=== PATIENT | male | born 1940 | race Caucasian/White ===

== ENCOUNTER 2019-10-23 04:07 | Observation (INO) | payer MEDICARE ==
[~2019-10-23] VITALS: Ht 152.4 cm; Wt 85.2 kg
--- NOTE | 2019-10-23 04:25 | PHYS DOC ---
Past History Past Medical History: Diabetes Past Surgical History: No Surgical History Alcohol Use: None Drug Use: None General Adult EDM: Chief Complaint: SHORTNESS OF BREATH HPI: HPI: 78-year-old male presents with shortness of breath. The patient woke up around 230 this morning with shortness of breath. He has had a mild cough for the last 1 day. Denies chest pain or diaphoresis. Patient has a history of "14 stents" and CHF. He denies having a fever at home. He does feel like his abdomen is more distended than usual. He tells me that with he is fluid overloaded it is mostly in his abdomen and lungs. He is on several medications including torsemide and Eliquis. The Eliquis is because of his stents. He has been taking all of his medications. He denies any recent changes. Review of Systems: Review of Systems: Constitutional: Denies fever or chills Eyes: Denies change in visual acuity HENT: Denies nasal congestion or sore throat Respiratory: Cough with shortness of breath Cardiovascular: Denies chest pain or edema GI: Denies abdominal pain, nausea, vomiting, bloody stools or diarrhea : Denies dysuria Musculoskeletal: Denies back pain or joint pain Integument: Denies rash Neurologic: Denies headache, focal weakness or sensory changes Endocrine: Denies polyuria or polydipsia Lymphatic: Denies swollen glands Psychiatric: Denies depression or anxiety Heart Score: Risk Factors: Risk Factors: DM, Current or recent (<one month) smoker, HTN, HLP, family history of CAD, obesity. Risk Scores: Score 0 - 3: 2.5% MACE over next 6 weeks - Discharge Home Score 4 - 6: 20.3% MACE over next 6 weeks - Admit for Clinical Observation Score 7 - 10: 72.7% MACE over next 6 weeks - Early Invasive Strategies Allergies: Allergies: Allergies Coded Allergies Type Severity Reaction Last Updated Verified Sulfa (Sulfonamide Antibiotics) Allergy Unknown 02/11/14 No Physical Exam: PE: Constitutional: Well developed, well nourished, obese, no acute distress, non- toxic appearance. [] HENT: Normocephalic, atraumatic, bilateral external ears normal, oropharynx moist, no oral exudates, nose normal. [] Eyes: PERRLA, EOMI, conjunctiva normal, no discharge. [] Neck: Normal range of motion, no tenderness, supple, no stridor. [] Cardiovascular: Heart rate paced, regular rhythm, no murmur [] Lungs & Thorax: Bilateral breath sounds expiratory crackles [] Abdomen: Bowel sounds normal, soft, no tenderness, no masses, no pulsatile masses. [] Skin: Warm, dry, no erythema, no rash. [] Back: No tenderness, no CVA tenderness. [] Extremities: No tenderness, no cyanosis, no clubbing, ROM intact, no edema. [] Neurologic: Alert and oriented X 3, normal motor function, normal sensory function, no focal deficits noted. [] Psychologic: Affect normal, judgement normal, mood normal. [] EKG: EKG: Paced rhythm, rate 71, right axis deviation, no ST elevations or depressions. [] Radiology/Procedures: Radiology/Procedures: [] Impressions: INDICATION: Reason: SOB / Spl. Instructions: / History: COMPARISON: December 2013 FINDINGS: Single view of chest obtained. Enlarged cardiomediastinal silhouette with AICD again seen. Interstitial and groundglass opacities are seen throughout the left greater than right lung. Calcified pulmonary nodules and calcified lymph node which could be sequela of old granulomatous disease. Sclerotic focus in the right proximal humerus again seen. IMPRESSION: * Interstitial and groundglass opacities throughout the left greater than right lung which can be seen with asymmetric pulmonary edema or infiltrate. Electronically signed by: Norma Edwards MD (10/23/2019 5:20 AM) [id number] DICTATED AND SIGNED BY: NORMA EDWARDS MD DATE: 10/23/19519 CC: MACARENA KHAN DO; TIFFANIE DE LEON MD ~ Course & Med Decision Making: Course & Med Decision Making Pertinent Labs and Imaging studies reviewed. (See chart for details) The patient's labs are significant for a very slightly elevated white count 11.1, BUN of 1.6, and elevated BNP of 576. The patient's chest x-ray suggests pulmonary edema but cannot exclude developing infiltrate especially on the left. See official read for more details. I will go ahead and treat the patient for possible pneumonia with Rocephin and azithromycin. We will give him 80 mg of Lasix IV for the CHF. Given the appearance of his x-ray the COVID swab is prudent and we will do that. I spoke with the hospitalist, Dr. Cleveland and he has accepted the patient for admission. The patient is in agreement with this plan. [] Dragon Disclaimer: Dragon Disclaimer: This electronic medical record was generated, in whole or in part, using a voice recognition dictation system. Departure Departure: Impression: Primary Impression: CHF (congestive heart failure) Additional Impression: Pneumonia Disposition: ADMITTED INPATIENT Admitting Physician: Augustine Cleveland Condition: STABLE Referrals: TIFFANIE DE LEON MD (PCP) Justification of Admission: Justification of Admission: Justification of Admission Dx: Yes Comments: CHF, pneumonia MACARENA KHAN DO Oct 23, 2019 04:25
--- NOTE | 2019-10-23 04:38 | EKG ---
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
[2019-10-23 05:03] LABS: BASO # 0.1 x10^3/uL (0.0-0.2); BASO % 1 % (0-3); CALCIUM 9.1 mg/dL (8.5-10.1); CREATININE 1.6 mg/dL (0.7-1.3); EOS # 0.5 x10^3/uL (0.0-0.7); EOS % 4 % (0-3); GFR 42.2; HEMATOCRIT 40.2 % (39.0-53.0); HEMOGLOBIN 13.4 g/dL (13.0-17.5); LYMPH # 2.2 x10^3/uL (1.0-4.8); LYMPH % 20 % (24-48); MEAN CORPUSCULAR HEMOGLOBIN 32 pg (25-35); MEAN CORPUSCULAR HGB CONC 33 g/dL (31-37); MEAN CORPUSCULAR VOLUME 95 fL (79-100); MONO # 1.4 x10^3/uL (0.0-1.1); MONO % 12 % (0-9); NEUT % 63 % (31-73); PLATELET COUNT 220 x10^3/uL (140-400); POTASSIUM 3.9 mmol/L (3.5-5.1); RED BLOOD COUNT 4.22 x10^6/uL (4.30-5.70); RED CELL DISTRIBUTION WIDTH 14.7 % (11.5-14.5); WHITE BLOOD COUNT 11.1 x10^3/uL (4.0-11.0)
[2019-10-23 05:15] LABS: ALBUMIN 3.8 g/dL (3.4-5.0); ALBUMIN/GLOBULIN RATIO 1.1 (1.0-1.7); TOTAL BILIRUBIN 0.5 mg/dL (0.2-1.0); TOTAL PROTEIN 7.3 g/dL (6.4-8.2)
--- NOTE | 2019-10-23 05:22 | RAD ---
INDICATION: Reason: SOB / Spl. Instructions: / History: COMPARISON: December 2013 FINDINGS: Single view of chest obtained. Enlarged cardiomediastinal silhouette with AICD again seen. Interstitial and groundglass opacities are seen throughout the left greater than right lung. Calcified pulmonary nodules and calcified lymph node which could be sequela of old granulomatous disease. Sclerotic focus in the right proximal humerus again seen. IMPRESSION: * Interstitial and groundglass opacities throughout the left greater than right lung which can be seen with asymmetric pulmonary edema or infiltrate. Electronically signed by: Eloy Suarez MD (10/23/2019 5:20 AM) [id number]
[2019-10-23] MEDS ORDERED: IV NORMAL SALINE 50ML 50 ML ONE (05:55)
[2019-10-23] MEDS ORDERED: cefTRIAXone SODIUM 1 GM VIAL ONE (05:55)
[2019-10-23] MEDS ORDERED: AZITHROMYCIN 500 MG VIAL. IV ONE (05:55)
[2019-10-23] MEDS ORDERED: IV NORMAL SALINE 250ML 250 ML ONE (05:55)
[2019-10-23] MEDS ORDERED: FUROSEMIDE 40 MG/4 ML VIAL IVP ONE (06:00)
[2019-10-23] MEDS ORDERED: ONDANSETRON PF 4 MG/2 ML VIAL. IVP PRN (06:00)
[2019-10-23] MEDS ORDERED: AZITHROMYCIN 500 MG in IV NORMAL SALINE 250ML 250 ML IV ONE (06:00)
[2019-10-23 07:12] LABS: BILIRUBIN,URINE NEG (NEG); CLARITY,URINE CLEAR; COLOR,URINE YELLOW; GLUCOSE,URINE NEG (NEG); NITRITE,URINE NEG (NEG); UROBILINOGEN,URINE 0.2 mg/dL (0.2 mg/dL)
[2019-10-23 07:13] LABS: BACTERIA,URINE 0 /HPF (0-FEW); SQUAMOUS EPITHELIAL CELL,UR FEW /LPF
[2019-10-23 07:30] VITALS: BP 154/69
--- NOTE | 2019-10-23 07:30 | NUR ---
PATIENT ARRIVED TO UNIT VIA EMS. PATIENTS VS OBTAINED AND ARE STABLE. PATIENT IS ORIENTED TO ROOM, BED RAIL POLICY, VISITING POLICY, MEAL SECHEDULE. PATIENT IS OFFERED FOOD AND DRINK AND ACCEPTS. MEAL TRAY ORDERED. PATIENT IS PLEASANT AND COOPERATIVE WITH ASSESSMENT. PATIENT IS RESTING IN BED AT THIS TIME. DR YOUNG NOTIFIED OF ADMISSION. WILL CONTINUE TO MONITOR.
[2019-10-23] MEDS ORDERED: LOSA100T14 PO (08:30)
[2019-10-23] MEDS ORDERED: METF10007 PO (08:30)
[2019-10-23] MEDS ORDERED: POTA20TA4 PO (08:30)
[2019-10-23] MEDS ORDERED: ATOR20TA58 PO (08:30)
[2019-10-23] MEDS ORDERED: SITA100T PO (08:30)
[2019-10-23] MEDS ORDERED: TORS20TA2 PO (08:30)
[2019-10-23] MEDS ORDERED: CARV25TA2 PO (08:30)
[2019-10-23] MEDS ORDERED: ESCI10TA2 PO (08:30)
[2019-10-23] MEDS ORDERED: APIX5TAB3 PO (08:30)
[2019-10-23] MEDS ORDERED: GABA-586 PO (08:30)
[2019-10-23] MEDS ORDERED: ASPI325T8 PO (08:32)
--- NOTE | 2019-10-23 10:55 | HP ---
ADMIT DATE: 10/23/2019 ATTENDING PHYSICIAN: Dr. Young. CHIEF COMPLAINT: Shortness of breath. HISTORY OF PRESENT ILLNESS: The patient is a 78-year-old gentleman with a 2-day history of increasing dyspnea, shortness of breath that woke him up at 2:30 this morning. He has had a mild nonproductive cough, no fevers or chills. No COVID exposures. He has a longstanding history of vascular disease with 14 stents in his heart, kidneys, and legs. He tells me that he is fluid overloaded. His urologist told him to drink plenty of fluids. He has been pushing liquids. This has resulted in vascular congestion. Chest x-ray demonstrated bilateral infiltrates consistent with congestive heart failure. He denied any chest pain. Cardiac enzymes were negative for coronary ischemia. He is on Eliquis and torsemide. He responded well to IV Lasix. He is admitted then for volume overload and exacerbation of congestive heart failure. He has seen a seed mill superintendent at [facility]. He has also seen urologist at [facility] as well as a primary care physician out in the [facility]. PAST MEDICAL HISTORY: Significant for multiple stents in his heart, legs and kidney. He has had sleep apnea. He is hard of hearing with bilateral hearing aids. He has had bladder cancer. ALLERGIES: He has allergies to SULFA. CURRENT MEDICATIONS: Include the following: He is on a daily dose of torsemide 20 mg daily, apixaban 5 mg daily, aspirin, Lipitor, Coreg, Lexapro, Neurontin, losartan, metformin, potassium and Januvia. He has also had type 2 diabetes mellitus. FAMILY HISTORY: Mom at age 92 of old age. Father of heart attack at age 62. He is , retired from [employer]. SOCIAL HISTORY: He used to smoke. He quit 6 years ago. He does not drink any alcohol. REVIEW OF SYSTEMS: Significant for the dyspnea. He has no orthopnea. He has no chest pain, palpitations, bleeding, nausea, vomiting. All other systems reviewed and determined to be negative. PHYSICAL EXAMINATION: GENERAL: When I saw him, this is a pleasant gentleman who was actually improved by the time I saw him. VITAL SIGNS: Showed a blood pressure of 175/76, pulse of 73 and regular, temperature 97.8 degrees Fahrenheit, oxygen saturation 96% on 2 liters of nasal cannula. HEENT: Head is without trauma. Pupils are reactive. Sclerae nonicteric. Oropharynx clear. NECK: Supple, no bruits. Venous pressure is not distended. LUNGS: Bibasilar crackles. CARDIOVASCULAR: Showed distant heart tones. Hyperdynamic precordium. No gallops. Peripheral pulses are palpable and full. ABDOMEN: Obese, protuberant. No organomegaly. Bowel sounds were hypoactive. EXTREMITIES: Showed trace edema. NEUROLOGIC: Focally intact. Combat Systems Officer intact. Speech is fluent. SKIN: Warm and dry. PERTINENT LABORATORY STUDIES: Chest x-ray demonstrated vascular congestion and cardiomegaly consistent with congestive heart failure. Hemoglobin is 13.4 g/dL with white cell count 11,000. Creatinine is 1.6 mg percent; I am not aware of his baseline. Cardiac enzymes have been negative for coronary ischemia. BNP 586, potassium is 3.9 mEq. ASSESSMENT: 1. A 78-year-old gentleman with acute congestive heart failure due to volume overload. 2. Known coronary artery disease with multiple stents. 3. Peripheral vascular disease with also stents. 4. History of prostate cancer. 5. Type 2 diabetes. 6. Generalized debilitation. 7. Essential hypertension. PLAN: 1. Admit inpatient unit with telemetry monitoring. 2. Serial cardiac enzymes. 3. Intravenous Lasix in lieu of Demadex. 4. Serial chemistry. 5. Potassium replacement. 6. Fluid restriction with daily weights. 7. We shall ask our seed mill superintendent to see him while he is here. CAROLYN YOUNG MD DR: BINA/jasson JOB#: [id number] / [id number]
[2019-10-23 11:30] VITALS: BP 136/69
[2019-10-23] MEDS: ASPIRIN 325 MG TABLET PO SCH (11:38)
[2019-10-23] MEDS: GABAPENTIN 300 MG CAPSULE. PO SCH ×2 (11:38→21:10)
[2019-10-23] MEDS: LOSARTAN 50 MG TABLET. PO SCH (11:39)
[2019-10-23] MEDS: CITALOPRAM 20 MG TABLET. PO SCH (11:40)
[2019-10-23] MEDS: POTASSIUM CHLORIDE 20 MEQ TABLET.ER. PO SCH (11:40)
[2019-10-23] MEDS: ATORVASTATIN CALCIUM 20 MG TABLET PO SCH (11:40)
[2019-10-23] MEDS: LINAGLIPTIN 5 MG TABLET PO SCH (11:40)
[2019-10-23] MEDS: APIXABAN 5 MG TABLET. PO SCH (11:40)
[2019-10-23 15:53] VITALS: BP 155/64
[2019-10-23] MEDS: FUROSEMIDE 80 MG TABLET PO SCH (16:20)
[2019-10-23] MEDS: metFORMIN 500 MG TABLET PO SCH (16:21)
[2019-10-23] MEDS: CARVEDILOL 12.5 MG TABLET PO SCH (16:21)
[2019-10-23 21:00] VITALS: BP 117/65
[2019-10-24 05:22] VITALS: BP 155/77
[2019-10-24 07:08] LABS: ALBUMIN 3.7 g/dL (3.4-5.0); ALBUMIN/GLOBULIN RATIO 1.1 (1.0-1.7); CREATININE 1.5 mg/dL (0.7-1.3); GFR 45.5; POTASSIUM 3.6 mmol/L (3.5-5.1); TOTAL BILIRUBIN 0.6 mg/dL (0.2-1.0); TOTAL PROTEIN 7.2 g/dL (6.4-8.2)
[2019-10-24] MEDS: ASPIRIN 325 MG TABLET PO SCH (07:41)
[2019-10-24] MEDS: metFORMIN 500 MG TABLET PO SCH (07:42)
[2019-10-24] MEDS: CARVEDILOL 12.5 MG TABLET PO SCH (07:42)
[2019-10-24] MEDS: GABAPENTIN 300 MG CAPSULE. PO SCH (08:30)
[2019-10-24 08:31] VITALS: BP 155/77
[2019-10-24] MEDS: LOSARTAN 50 MG TABLET. PO SCH (08:31)
[2019-10-24] MEDS: CITALOPRAM 20 MG TABLET. PO SCH (08:31)
[2019-10-24] MEDS: LINAGLIPTIN 5 MG TABLET PO SCH (08:31)
[2019-10-24] MEDS: POTASSIUM CHLORIDE 20 MEQ TABLET.ER. PO SCH (08:31)
[2019-10-24] MEDS: ATORVASTATIN CALCIUM 20 MG TABLET PO SCH (08:31)
[2019-10-24] MEDS: APIXABAN 5 MG TABLET. PO SCH (08:31)
[2019-10-24] MEDS: FUROSEMIDE 80 MG TABLET PO SCH (08:32)
[2019-10-24] MEDS ORDERED: POTASSIUM CHLORIDE 20 MEQ TABLET.ER. PO SCH (09:00)
--- NOTE | 2019-10-24 09:48 | RAD ---
AP chest x-ray HISTORY: Shortness of breath. Follow-up. COMPARISON: Chest x-ray October 23, 2019 and priors FINDINGS: 3-lead cardiac pacemaker/defibrillator again noted. Cardiomegaly stable. Diffuse calcified granulomas throughout the mediastinum and lungs again demonstrated. Heart size stable. No pneumothorax, pulmonary opacities or pleural effusions. The pulmonary opacities on the prior exam have since resolved. IMPRESSION: No acute process. Sequela of an old granulomatous infection again demonstrated. See above. Electronically signed by: Dakota Liz MD (10/24/2019 9:45 AM) [id number]
--- NOTE | 2019-10-24 10:37 | NUR ---
Reviewed discharge instructions with patient including follow up appts, medications, importance of diet/salt intake, daily weights. PIV removed, pressure bandage applied, pt tolerated well. Pt had all belongings at discharge including 3 gold rings, cell phone, clothing, mask, shoes. Pt left unit ambulatory to personal vehicle at 1037 with spouse.
--- NOTE | 2019-10-24 11:08 | DS ---
DATE OF DISCHARGE: 10/24/2019 ATTENDING PHYSICIAN: Dr. Young. FINAL DISCHARGE DIAGNOSES: 1. Acute congestive heart failure due to volume overload. 2. Known coronary artery disease with multiple stents. 3. Type 2 diabetes mellitus. 4. Peripheral vascular disease with stents. 5. History of prostate cancer. 6. Essential hypertension. 7. Generalized debilitation. HISTORY AND PHYSICAL: This is a 78-year-old gentleman with multiple medical issues. He has had a 2-day history of increasing dyspnea, shortness of breath and he had evidence of vascular congestion and congestive heart failure. He is followed by senior software tester at [facility]. He also sees a urologist for his urologic malignancy. He has had multiple stents in his heart, legs and kidney. He also has sleep apnea. PHYSICAL EXAMINATION: Please see the dictated note. PERTINENT LABORATORY AND X-RAY STUDIES: On this admission, cardiac enzymes were negative for coronary ischemia. There was no evidence of myocardial infarct. Creatinine on admission was 1.6 mg/dL; with diuresis, it is actually improved the next day to 1.5 mg/dL. Potassium is maintained at 3.6 mEq per liter, sodium 141 mEq, hemoglobin 13.4 g/dL with a white count of 11,100. Chest x-ray demonstrated cardiomegaly, vascular congestion. AICD is present. Followup x-ray the next day showed improvement or lessening of vascular congestion. COURSE IN THE HOSPITAL: The patient was admitted to the medical floor. He was placed on telemetry. He responded well to intravenous diuresis with Lasix. Followup chemistries the next day showed an improvement in serum creatinine. Electrolytes were stable. He had no chest pain and he felt better. Supplemental oxygen was removed. At this time, I offered a Cardiology consultation while at [facility]. He elected to see his regular senior software tester at [facility]. By the second hospital day, the patient was much improved. Lungs were clear. He felt better. He had adequate oxygen saturation on room air. The patient was afebrile, heart rate was normal. Swelling had improved. He had normal oxygen saturations on room air, blood pressure was 155/77 mmHg. Therefore, he is discharged home with no changes on his medication. I would recommend that he continue his daily morning dose of Demadex 20 mg p.o. daily. He should continue his Eliquis 5 mg daily, Lipitor, Coreg 12.5 mg b.i.d., losartan, aspirin, Neurontin, Lexapro, potassium supplementation, Demadex, metformin and Januvia dose is unchanged. He will follow up with his regular senior software tester and primary care physician. The patient was then discharged from our hospital in stable condition with explicit instructions and followup care. TOTAL DISCHARGE TIME SPENT: 39 minutes. CAROLYN YOUNG MD DR: BNIA/nts JOB#: [id number] / [id number]
--- NOTE | 2019-10-27 11:40 | NUR ---
IP: patient notified of COVID test result
== END 2019-10-24 10:37 | disposition home or self-care (01) ==
LOC: ER 04:07 → 1 SOUTH 05:00 → INTOOBSV 05:00
PROVIDERS: ADMIT Hospitalist; ATTEND Hospitalist
DX: I11.0 Hypertensive heart disease with heart failure (principal); Z20.828 Contact with and (suspected) exposure to other viral communicable diseases; I50.9 Heart failure, unspecified; H91.90 Unspecified hearing loss, unspecified ear; G47.30 Sleep apnea, unspecified; I25.10 Atherosclerotic heart disease of native coronary artery without angina pectoris; E11.51 Type 2 diabetes mellitus with diabetic peripheral angiopathy without gangrene; Z95.820 Peripheral vascular angioplasty status with implants and grafts; Z79.01 Long term (current) use of anticoagulants; Z79.899 Other long term (current) drug therapy; Z87.891 Personal history of nicotine dependence; Z85.51 Personal history of malignant neoplasm of bladder; Z95.5 Presence of coronary angioplasty implant and graft; Z85.46 Personal history of malignant neoplasm of prostate; Z97.4 Presence of external hearing-aid
CPT/HCPCS: 36415; 71045; 80053; 81001; 83880; 84484; 85025; 87086; 93005; 96366; 96368; 96375; 99285; G0378; J0456; J0696; J1940; J7050; U0003; 96365; G0379

== ENCOUNTER → 2020-08-10 | Outpatient (CLI) | payer MEDICARE ==
[~2020-08-10] MED LIST: APIX5TAB3 PO; ASPI325T8 PO; ATOR20TA58 PO; CARV25TA2 PO; ESCI10TA90 PO; GABA-586 PO; LOSA100T14 PO; METF10007 PO; POTA20TA4 PO; SITA100T PO; TORS20TA2 PO
[2020-08-10 10:50] LABS: CALCIUM 10.1 mg/dL (8.5-10.1); CREATININE 2.7 mg/dL (0.7-1.3); POTASSIUM 3.6 mmol/L (3.5-5.1)
== END ==
LOC: LAB 09:56
PROVIDERS: ATTEND Internal Medicine Interventional Cardiology
DX: I10 Essential (primary) hypertension (principal); Z95.810 Presence of automatic (implantable) cardiac defibrillator
CPT/HCPCS: 36415; 80048; 83735

== ENCOUNTER → 2020-09-29 | Outpatient (CLI) | payer MEDICARE ==
--- NOTE | 2020-09-29 10:28 | RAD ---
EXAM: CHEST 2 VIEWS. HISTORY: Acute renal failure. COMPARISON: 10/24/2019. FINDINGS: Frontal and lateral views of the chest are obtained. A left-sided pacemaker/defibrillator h as its leads in the right atrium, right ventricle and a left cardiac vein. There are no confluent infiltrates. There is no pneumothorax or pleural effusion. The heart is mildly enlarged. There are atherosclerotic calcifications of the aorta. Calcified lymph nodes likely reflec t old granulomatous disease. There are scattered calcified granulomas bilaterally. Changes of right r otator cuff repair are suspected. IMPRESSION: 1. Mild cardiomegaly. Electronically signed by: Nelly Guajardo MD (09/29/2020 10:26 AM) [id number]
== END ==
LOC: RAD 09:39
PROVIDERS: ATTEND Internal Medicine Nephrology
DX: I51.7 Cardiomegaly (principal); N17.9 Acute kidney failure, unspecified; I70.0 Atherosclerosis of aorta
CPT/HCPCS: 71046

== ENCOUNTER 2020-12-30 05:03 | Inpatient (IN) | payer MEDICARE ==
[~2020-12-30] VITALS: Ht 172.7 cm; Wt 74.5 kg
[~2020-12-30 05:03] MED LIST changes: +POTA-121 PO; -POTA20TA4 PO
--- NOTE | 2020-12-30 05:35 | PHYS DOC ---
Past History Past Medical History: Cancer, CHF, Depression, Diabetes, High Cholesterol, Hypertension, LA, Other Additional Past Medical Histor: BLADDER CANCER (CADEN NOEL MD) Past Surgical History: Pacemaker Additional Past Surgical Histo: 14 CARDIAC STENTS, CANCER SX (CADEN NOEL MD) Alcohol Use: None Drug Use: None (CADEN NOEL MD) Adult General Chief Complaint Chief Complaint: MECHANICAL FALL HPI HPI Patient is a 80-year-old male with a past medical history significant for stroke, LA, on Xarelto with a defibrillator in place as well as insulin- dependent diabetes, hypertension and hyperlipidemia who presents to the emerg ency department with a chief complaint of fall. States that about 3 to 4 hours ago he went to get out of bed to go to the restroom and was too weak to stand and fell to the floor. Denies hitting his head, or loss of consciousness. Denies headache, changes in vision, chest pain, shortness of breath, abdominal pain, nausea, vomiting, dysuria, hematuria, blood in the stool or diarrhea. Denies any Covid/flu/cold symptoms. Denies any numbness/tingling. Does endorse generalized weakness worse in his legs and difficulty walking due to the weakness of his legs. States he had not had that happen before. (CADEN NOEL MD) Review of Systems Review of Systems Review of systems otherwise unremarkable except noted in HPI (CADEN NOEL MD) Allergies Allergies Allergies Coded Allergies Type Severity Reaction Last Updated Verified Sulfa (Sulfonamide Antibiotics) Allergy Unknown 02/11/14 No (CADEN NOEL MD) Physical Exam Physical Exam Constitutional: Well developed, well nourished, no acute distress, non-toxic appearance. [] HENT: Normocephalic, atraumatic, bilateral external ears normal, oropharynx moist, no oral exudates, nose normal. [] Eyes: PERRLA, EOMI, conjunctiva normal, no discharge. [] Neck: Normal range of motion, no tenderness, supple, no stridor. [] Cardiovascular:Heart rate regular rhythm, no murmur [] Lungs & Thorax: Bilateral breath sounds clear to auscultation [] Abdomen: soft, no tenderness, no masses, no pulsatile masses. [] Skin: Warm, dry, no erythema, no rash. [] Back: Lower lumbar midline tenderness with no obvious step-offs, no CVA tenderness. [] Extremities: No tenderness, no cyanosis, no clubbing, ROM intact, no edema. [] Neurologic: Alert and oriented X 3, motor function in lower extremities 4 out of 5 strength with upper extremities 5 out of 5, normal sensory function, no focal deficits noted, cranial nerves intact, able to sit and stand but has difficulty walking without assistance which is new for him. NIH of zero. [] Psychologic: Affect normal, judgement normal, mood normal. [] (CADEN NOEL MD) Current Patient Data Vital Signs Vital Signs Date Time Temp Pulse Resp B/P (MAP) Pulse Ox O2 Delivery O2 Flow Rate FiO2 12/30/20 05:06 99.0 81 23 136/60 (85) 97 (CADEN NOEL MD) Vital Signs Vital Signs Date Time Temp Pulse Resp B/P (MAP) Pulse Ox O2 Delivery O2 Flow Rate FiO2 12/30/20 05:06 99.0 81 23 136/60 (85) 97 12/30/20 06:04 Room Air Vital Signs Date Time Temp Pulse Resp B/P (MAP) Pulse Ox O2 Delivery O2 Flow Rate FiO2 12/30/20 06:04 86 17 136/80 (98) 95 Room Air 12/30/20 05:06 99.0 Lab Results Laboratory Tests Test 12/30/20 05:15 12/30/20 05:29 White Blood Count 3.9 x10^3/uL Red Blood Count 3.42 x10^6/uL Hemoglobin 9.4 g/dL Hematocrit 29.5 % Mean Corpuscular Volume 86 fL Mean Corpuscular Hemoglobin 28 pg Mean Corpuscular Hemoglobin Concent 32 g/dL Red Cell Distribution Width 16.4 % Platelet Count 132 x10^3/uL Neutrophils (%) (Auto) 63 % Lymphocytes (%) (Auto) 22 % Monocytes (%) (Auto) 14 % Eosinophils (%) (Auto) 0 % Basophils (%) (Auto) 1 % Neutrophils # (Auto) 2.5 x10^3uL Lymphocytes # (Auto) 0.9 x10^3/uL Monocytes # (Auto) 0.5 x10^3/uL Eosinophils # (Auto) 0.0 x10^3/uL Basophils # (Auto) 0.0 x10^3/uL Prothrombin Time 12.2 SEC Prothromb Time International Ratio 1.2 Activated Partial Thromboplast Time 27 SEC Sodium Level 135 mmol/L Potassium Level 3.0 mmol/L Chloride Level 99 mmol/L Carbon Dioxide Level 24 mmol/L Anion Gap 12 Blood Urea Nitrogen 65 mg/dL Creatinine 3.1 mg/dL Estimated GFR (Cockcroft-Gault) 19.6 BUN/Creatinine Ratio 21 Glucose Level 190 mg/dL Calcium Level 11.1 mg/dL Magnesium Level 2.3 mg/dL Total Bilirubin 0.4 mg/dL Aspartate Amino Transf (AST/SGOT) 22 U/L Alanine Aminotransferase (ALT/SGPT) 39 U/L Alkaline Phosphatase 383 U/L Troponin I High Sensitivity 124 ng/L Total Protein 5.3 g/dL Albumin 2.4 g/dL Albumin/Globulin Ratio 0.8 Urine Collection Type Unknown Urine Color Yellow Urine Clarity Clear Urine pH 5.0 Urine Specific [place] 1.010 Urine Protein 100 mg/dl Urine Glucose (UA) 100 mg/dL Urine Ketones (Stick) Neg mg/dL Urine Blood Neg Urine Nitrite Neg Urine Bilirubin Neg Urine Urobilinogen Dipstick 0.2 mg/dL Urine Leukocyte Esterase Neg Urine RBC 0 /HPF Urine WBC Occ /HPF Urine Squamous Epithelial Cells Occ /LPF Urine Bacteria 0 /HPF Current Medications Medications (Trade) Dose Ordered Sig/Darby Route PRN Reason Start Time Stop Time Status Last Admin Dose Admin Acetaminophen (Tylenol) 1,000 mg 1X ONCE PO 12/30/20 05:45 12/30/20 05:46 DC 12/30/20 05:43 Fentanyl Citrate (Fentanyl 2ml Vial) 25 mcg 1X ONCE IVP 12/30/20 05:45 12/30/20 05:46 DC 12/30/20 05:44 Iohexol (Omnipaque 350 Mg/ml) 100 ml 1X ONCE IV 12/30/20 06:00 12/30/20 06:01 DC Info (Do NOT chart on this entry -- for MONITORING) 1 each PRN DAILY PRN MC SEE COMMENTS 12/30/20 06:00 01/01/21 05:59 Potassium Chloride/Sodium Chloride 1,000 ml @ 100 mls/hr 1X ONCE IV 12/30/20 07:00 12/30/20 16:59 Potassium Chloride (Klor-Con) 40 meq 1X ONCE PO 12/30/20 07:00 12/30/20 07:01 DC (VIETKATE ) EKG EKG [] (CADEN NOEL MD) Radiology/Procedures Radiology/Procedures [] (CADEN NOEL MD) Radiology/Procedures CT HEAD WITHOUT CONTRAST History: Reason: fall on blood thinner / Spl. Instructions: / History: Comparison: None. Technique: Axial images are obtained of the head from the skull base through the vertex without IV contrast. Findings: No mass-effect, midline shift, extra-axial fluid collection, hemorrhage, or obvious acute infarction is identified. Basilar cisterns are patent. The ventricles and sulci are prominent, consistent with age-related cerebral atrophy. There is periventricular white matter hypoattenuation. This is a nonspecific finding but is commonly due to chronic small vessel ischemic disease. There is small old left ashby radiata lacunar infarct. Heterogeneous calvarium may be due to diffuse demineralization. No acute fracture is identified. The visualized paranasal sinuses are clear. Mastoid air cells are well aerated. IMPRESSION: 1. No acute intracranial abnormality. 2. Generalized cerebral atrophy. 3. Old left ashby radiata lacunar infarct. Electronically signed by: Job Marshall MD (12/30/2020 7:05 AM) [facility] /////////////////////////////////////// EXAMINATION: CTA HEAD AND NECK W/WO CONTRAST CLINICAL HISTORY: Fall, on blood thinners TECHNIQUE: Spiral high resolution axial images were obtained through the head, neck and superior mediastinum following bolus administration of intravenous contrast for CT angiography. 3D maximum intensity projection images also performed. CT Dose Reduction Employed: One or more of the following individualized dose reduction techniques were utilized for this examination: 1. Automated exposure control 2. Adjustment of the mA and/or kV according to patient size 3. Use of iterative reconstruction technique. COMPARISON: None FINDINGS: BRAIN: No evidence of acute ischemic stroke or intracranial hemorrhage. NECK: Soft Tissues: No evidence of acute abnormality. Partially visualized left-sided cardiac pacemaker. Spine: Multilevel degenerative changes. Lung Apices: No acute abnormality. No dependent subsegmental atelectasis. Calcified superior mediastinal lymph nodes, compatible with old granulomatous disease. CT ARTERIOGRAM: Extracranial Circulation: Aortic Arch: Normal branching pattern from the aortic arch. Moderate mixed atherosclerotic plaque in the aortic arch and arch vessels without evidence of hemodynamically significant stenosis. Carotid Stenosis: Right Common: Moderate mixed atherosclerotic plaque greatest at the bifurcation without evidence of hemodynamically significant stenosis. Right Internal Carotid Plaque: Mild to moderate calcified plaque in the proximal internal carotid artery. Right Internal Carotid Stenosis (% by NASCET Criteria): < 50% Left Common: Mild mixed atherosclerotic plaque without evidence of hemodynamically significant stenosis. Left Internal Carotid Plaque: Mild to moderate calcified plaque in the carotid bulb and proximal internal carotid artery. Left Internal Carotid Stenosis (% by NASCET Criteria): < 50% Cervical Vertebral Arteries: Patency: Patent bilaterally with mild calcified plaque. Dominance: Left Intracranial Circulation: Anterior Circulation: No evidence of large vessel occlusion. Mild calcified plaque in the intracranial portion of the bilateral internal carotid arteries. 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 Vertebrobasilar Circulation: No evidence of large vessel occlusion. Normal variant anatomy with the right vertebral artery terminating in the PICA and origin of the right posterior cerebral artery. IMPRESSION: No evidence of large vessel occlusion or significant carotid arterial stenosis. Multiple nonacute findings as described. Electronically signed by: Teodoro Lantigua DO (12/30/2020 7:20 AM) [id number] ///////////////////////////// EXAMINATION: CT CHEST_ABDOMEN_ AND PELVIS WITHOUT CONTRAST (CT CHEST WITHOUT IV CONTRAST and CT ABDOMEN AND PELVIS WITHOUT IV CONTRAST) CLINICAL HISTORY: Fall, on blood thinner. Lumbar pain, chest wall pain TECHNIQUE: CT of the chest performed without IV contrast, scanning from the thoracic inlet to the upper abdomen. CT of the abdomen and pelvis performed without IV contrast, scanning from just above the dome of the diaphragm to the symphysis pubis. CT Dose Reduction Employed: One or more of the following individualized dose reduction techniques were utilized for this examination: 1. Automated exposure control 2. Adjustment of the mA and/or kV according to patient size 3. Use of iterative reconstruction technique. COMPARISON: None FINDINGS: CHEST: Lines, Tubes, and Devices: Left-sided dual-chamber biventricular cardiac pacemaker/ICD. Lung Parenchyma and Pleura: Mild dependent subsegmental atelectasis bilaterally. Motion degraded images of the lung bases suggests more prominent patchy opacities in the left lung base, possibly related to increased atelectasis but superimposed infection is not excluded. Upper lobe predominant centrilobular emphysematous changes. Multiple bilateral small old calcified granulomas. No pleural effusion. Central airways are patent. Lower Neck, Mediastinum, and Heart: Tiny hypodense nodule in the posterior right thyroid gland. Multiple calcified mediastinal and hilar lymph nodes, compatible with old granulomatous disease. Main pulmonary artery normal in caliber. Moderate aortic atherosclerotic calcification without aneurysm. Extensive coronary atherosclerotic calcification. Normal heart size. Bones/Soft Tissues: Mild compression deformity in the T7 superior endplate, possibly a compression fracture of unclear chronicity versus a more prominent Schmorl's node superimposed on endplate degenerative change. 1.4 cm heterogeneous lesion in the T6 vertebral body, nonspecific but may be related to a hemangioma with superimposed sclerosis. Subcentimeter sclerotic foci in the T6 and T9 vertebral bodies, nonspecific but could represent bone islands. Multilevel thoracic degenerative changes. No evidence of acute fracture. ABDOMEN/PELVIS: Liver: Small old calcified granulomas. Biliary: Gallbladder unremarkable. Spleen: Small old calcified granulomas. Pancreas: Unremarkable. Adrenals: Unremarkable. Kidneys: No calculus, hydronephrosis or finding to suggest a cyst or mass in the unenhanced kidneys. Vascular calcifications. GI Tract: No dilated bowel. Appendix not definitively visualized. Lymph Nodes: No lymphadenopathy. Mesentery/peritoneum: No ascites. Vasculature: Extensive arterial atherosclerotic calcification without aneurysm. Bilateral common iliac endovascular stents. Surgical clips along the course of the left iliac vessels. Pelvis: Mildly filled urinary bladder. Coarse prostatic calcifications. Bones/Soft Tissues: Subcentimeter sclerotic focus in the L4 vertebral body, nonspecific but could represent a bone island. Multilevel lumbar degenerative changes. No evidence of acute fracture. IMPRESSION: Patchy airspace disease suspected in the left lung base as described, suboptimally evaluated due to motion degradation. There is otherwise no evidence of acute cardiopulmonary abnormality. No evidence of acute abdominopelvic abnormality. Possible T7 compression fracture as described. This is of unclear chronicity without old studies for comparison, but more remote process is favored. Nonspecific heterogeneous lesion in the T6 vertebral body and small sclerotic foci in the T6, T9, and L4 vertebral bodies as described. Multiple additional nonacute findings as described. Electronically signed by: Teodoro Lantigua DO (12/30/2020 7:41 AM) [id number] (KATE LLANOS DO) Heart Score C/O Chest Pain: No Risk Factors: Risk Factors: DM, Current or recent (<one month) smoker, HTN, HLP, family history of CAD, obesity. Risk Scores: Risk Factors: DM, Current or recent (<one month) smoker, HTN, HLP, family history of CAD, obesity. (CADEN NOEL MD) Course & Med Decision Making Course & Med Decision Making Patient is a 80-year-old male who presents with a chief complaint of fall, leg weakness and low back pain Vital signs not concerning. Physical exam noted above. Patient placed on the monitor with IV access established. Patient's care handed off to day team pending results of labs and imaging. (CADEN NOEL MD) Course & Med Decision Making I assumed care of patient after comprehensive signout from off going physician I repeated certain aspects of history and physical exam and reviewed and disclosed entirety of ER findings I discussed and recommended hospitalization given patient's multiple issues. Electrolyte imbalance corrected with IV fluids and supplemental potassium. Elevated troponin and high risk individual. Weakness with fall, no emergent indication for surgical intervention. I contacted hospitalist and reviewed entirety of patient presentation and need for admission, patient admission accepted under the care of Dr. Cleveland for continued inpatient medical management I have updated patient and at bedside on conversation with hospitalist and need for admission, they were amenable. All questions and concerns addressed. confirms patient is full CODE STATUS at time of admission (KATE LLANOS DO) Dragon Disclaimer Dragon Disclaimer This electronic medical record was generated, in whole or in part, using a voice recognition dictation system. (CADEN NOEL MD) Departure Departure: Impression: Primary Impression: Fall Additional Impressions: Elevated troponin Electrolyte imbalance CKD (chronic kidney disease) Disposition: ADMITTED INPATIENT Admitting Physician: Augustine Cleveland (KATE LLANOS DO) Condition: STABLE Referrals: TIFFANIE DE LEON MD (PCP) Problem Qualifiers CADEN NOEL MD Dec 30, 2020 05:35 KATE LLANOS DO Dec 30, 2020 07:19
[2020-12-30 05:39] LABS: BASO % 1 % (0-3); EOS % 0 % (0-3); HEMATOCRIT 29.5 % (39.0-53.0); HEMOGLOBIN 9.4 g/dL (13.0-17.5); LYMPH # 0.9 x10^3/uL (1.0-4.8); LYMPH % 22 % (24-48); MEAN CORPUSCULAR HEMOGLOBIN 28 pg (25-35); MEAN CORPUSCULAR HGB CONC 32 g/dL (31-37); MEAN CORPUSCULAR VOLUME 86 fL (79-100); MONO # 0.5 x10^3/uL (0.0-1.1); MONO % 14 % (0-9); NEUT # 2.5 x10^3uL (1.8-7.7); NEUT % 63 % (31-73); PLATELET COUNT 132 x10^3/uL (140-400); RED BLOOD COUNT 3.42 x10^6/uL (4.30-5.70); RED CELL DISTRIBUTION WIDTH 16.4 % (11.5-14.5); WHITE BLOOD COUNT 3.9 x10^3/uL (4.0-11.0)
[2020-12-30] MEDS ORDERED: ACETAMINOPHEN 500 MG TABLET PO ONE (05:45)
--- NOTE | 2020-12-30 05:50 | EKG ---
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
[2020-12-30 05:52] LABS: BACTERIA,URINE 0 /HPF (0-FEW); BILIRUBIN,URINE NEG (NEG); CLARITY,URINE CLEAR; COLOR,URINE YELLOW; GLUCOSE,URINE 100 mg/dL (NEG); NITRITE,URINE NEG (NEG); RBC,URINE 0 /HPF (0-2); SQUAMOUS EPITHELIAL CELL,UR OCC /LPF; UROBILINOGEN,URINE 0.2 mg/dL (0.2 mg/dL); WBC,URINE OCC /HPF (0-4)
[2020-12-30 05:54] LABS: ALBUMIN 2.4 g/dL (3.4-5.0); ALBUMIN/GLOBULIN RATIO 0.8 (1.0-1.7); CALCIUM 11.1 mg/dL (8.5-10.1); CREATININE 3.1 mg/dL (0.7-1.3); GFR 19.6; TOTAL BILIRUBIN 0.4 mg/dL (0.2-1.0); TOTAL PROTEIN 5.3 g/dL (6.4-8.2)
[2020-12-30] MEDS ORDERED: IOHEXOL 350 MG/ML 100 ML VIAL. IV ONE (06:00)
[2020-12-30] MEDS ORDERED: CONTRAST GIVEN. MC PRN (06:00)
[2020-12-30] MEDS ORDERED: POTASSIUM CHLORIDE 20 MEQ TABLET.ER. PO ONE (07:00)
[2020-12-30] MEDS ORDERED: POTASSIUM CL 40MEQ IN 0.9%NACL 1,000 ML IV ONE (07:00)
--- NOTE | 2020-12-30 07:08 | RAD ---
PQRS Compliance Statement: One or more of the following individualized dose reduction techniques were utilized for this examinat ion: 1. Automated exposure control 2. Adjustment of the mA and/or kV according to patient size 3. Use of iterative reconstruction technique CT HEAD WITHOUT CONTRAST History: Reason: fall on blood thinner / Spl. Instructions: / History: Comparison: None. Technique: Axial images are obtained of the head from the skull base through the vertex without IV co ntrast. Findings: No mass-effect, midline shift, extra-axial fluid collection, hemorrhage, or obvious acute infarction is identified. Basilar cisterns are patent. The ventricles and sulci are prominent, consistent with age-related cerebral atrophy. There is perive ntricular white matter hypoattenuation. This is a nonspecific finding but is commonly due to chronic small vessel ischemic disease. There is small old left ashby radiata lacunar infarct. Heterogeneous calvarium may be due to diffuse demineralization. No acute fracture is identified. The visualized paranasal sinuses are clear. Mastoid air cells are well aerated. IMPRESSION: 1. No acute intracranial abnormality. 2. Generalized cerebral atrophy. 3. Old left ashby radiata lacunar infarct. Electronically signed by: Job Marshall MD (12/30/2020 7:05 AM) [facility]
--- NOTE | 2020-12-30 07:23 | RAD ---
EXAMINATION: CTA HEAD AND NECK W/WO CONTRAST CLINICAL HISTORY: Fall, on blood thinners TECHNIQUE: Spiral high resolution axial images were obtained through the head, neck and superior medi astinum following bolus administration of intravenous contrast for CT angiography. 3D maximum intensi ty projection images also performed. CT Dose Reduction Employed: One or more of the following individualized dose reduction techniques wer e utilized for this examination: 1. Automated exposure control 2. Adjustment of the mA and/or kV ac cording to patient size 3. Use of iterative reconstruction technique. COMPARISON: None FINDINGS: BRAIN: No evidence of acute ischemic stroke or intracranial hemorrhage. NECK: Soft Tissues: No evidence of acute abnormality. Partially visualized left-sided cardiac pacemaker. Spine: Multilevel degenerative changes. Lung Apices: No acute abnormality. No dependent subsegmental atelectasis. Calcified superior mediasti nal lymph nodes, compatible with old granulomatous disease. CT ARTERIOGRAM: Extracranial Circulation: Aortic Arch: Normal branching pattern from the aortic arch. Moderate mixed atherosclerotic plaque in the aortic arch and arch vessels without evidence of hemodynamically significant stenosis. Carotid Stenosis: Right Common: Moderate mixed atherosclerotic plaque greatest at the bifurcation without evidence of h emodynamically significant stenosis. Right Internal Carotid Plaque: Mild to moderate calcified plaque in the proximal internal carotid art zoey. Right Internal Carotid Stenosis (% by NASCET Criteria): < 50% Left Common: Mild mixed atherosclerotic plaque without evidence of hemodynamically significant stenos is. Left Internal Carotid Plaque: Mild to moderate calcified plaque in the carotid bulb and proximal inte rnal carotid artery. Left Internal Carotid Stenosis (% by NASCET Criteria): < 50% Cervical Vertebral Arteries: Patency: Patent bilaterally with mild calcified plaque. Dominance: Left Intracranial Circulation: Anterior Circulation: No evidence of large vessel occlusion. Mild calcified plaque in the intracrania l portion of the bilateral internal carotid arteries. Normal variant anatomy with severe hypoplasia/a plasia of the A1 segment of the right anterior cerebral artery with reconstitution of the right A2 se gment via the anterior communicating artery. Vertebrobasilar Circulation: No evidence of large vessel occlusion. Normal variant anatomy with the r ight vertebral artery terminating in the PICA and origin of the right posterior cerebral artery . IMPRESSION: No evidence of large vessel occlusion or significant carotid arterial stenosis. Multiple nonacute findings as described. Electronically signed by: Teodoro Lantigua DO (12/30/2020 7:20 AM) [id number]
[2020-12-30] MEDS ORDERED: NITROGLYCERIN SUBLINGUAL 0.4 MG BOTTLE OF 25. SL PRN (07:30)
[2020-12-30] MEDS ORDERED: ACETAMINOPHEN 325 MG TABLET PO PRN (07:30)
--- NOTE | 2020-12-30 07:44 | RAD ---
EXAMINATION: CT CHEST_ABDOMEN_ AND PELVIS WITHOUT CONTRAST (CT CHEST WITHOUT IV CONTRAST and CT ABDOM EN AND PELVIS WITHOUT IV CONTRAST) CLINICAL HISTORY: Fall, on blood thinner. Lumbar pain, chest wall pain TECHNIQUE: CT of the chest performed without IV contrast, scanning from the thoracic inlet to the upp er abdomen. CT of the abdomen and pelvis performed without IV contrast, scanning from just above the dome of the diaphragm to the symphysis pubis. CT Dose Reduction Employed: One or more of the following individualized dose reduction techniques wer e utilized for this examination: 1. Automated exposure control 2. Adjustment of the mA and/or kV ac cording to patient size 3. Use of iterative reconstruction technique. COMPARISON: None FINDINGS: CHEST: Lines, Tubes, and Devices: Left-sided dual-chamber biventricular cardiac pacemaker/ICD. Lung Parenchyma and Pleura: Mild dependent subsegmental atelectasis bilaterally. Motion degraded imag es of the lung bases suggests more prominent patchy opacities in the left lung base, possibly related to increased atelectasis but superimposed infection is not excluded. Upper lobe predominant centrilo bular emphysematous changes. Multiple bilateral small old calcified granulomas. No pleural effusion. Central airways are patent. Lower Neck, Mediastinum, and Heart: Tiny hypodense nodule in the posterior right thyroid gland. Multi ple calcified mediastinal and hilar lymph nodes, compatible with old granulomatous disease. Main pulm onary artery normal in caliber. Moderate aortic atherosclerotic calcification without aneurysm. Exten sive coronary atherosclerotic calcification. Normal heart size. Bones/Soft Tissues: Mild compression deformity in the T7 superior endplate, possibly a compression fr acture of unclear chronicity versus a more prominent Schmorl's node superimposed on endplate degenera tive change. 1.4 cm heterogeneous lesion in the T6 vertebral body, nonspecific but may be related to a hemangioma with superimposed sclerosis. Subcentimeter sclerotic foci in the T6 and T9 vertebral bod ies, nonspecific but could represent bone islands. Multilevel thoracic degenerative changes. No evide nce of acute fracture. ABDOMEN/PELVIS: Liver: Small old calcified granulomas. Biliary: Gallbladder unremarkable. Spleen: Small old calcified granulomas. Pancreas: Unremarkable. Adrenals: Unremarkable. Kidneys: No calculus, hydronephrosis or finding to suggest a cyst or mass in the unenhanced kidneys. Vascular calcifications. GI Tract: No dilated bowel. Appendix not definitively visualized. Lymph Nodes: No lymphadenopathy. Mesentery/peritoneum: No ascites. Vasculature: Extensive arterial atherosclerotic calcification without aneurysm. Bilateral common sally c endovascular stents. Surgical clips along the course of the left iliac vessels. Pelvis: Mildly filled urinary bladder. Coarse prostatic calcifications. Bones/Soft Tissues: Subcentimeter sclerotic focus in the L4 vertebral body, nonspecific but could rep resent a bone island. Multilevel lumbar degenerative changes. No evidence of acute fracture. IMPRESSION: Patchy airspace disease suspected in the left lung base as described, suboptimally evaluated due to m otion degradation. There is otherwise no evidence of acute cardiopulmonary abnormality. No evidence of acute abdominopelvic abnormality. Possible T7 compression fracture as described. This is of unclear chronicity without old studies for comparison, but more remote process is favored. Nonspecific heterogeneous lesion in the T6 vertebral body and small sclerotic foci in the T6, T9, and L4 vertebral bodies as described. Multiple additional nonacute findings as described. Electronically signed by: Teodoro Lantigua DO (12/30/2020 7:41 AM) [id number]
[2020-12-30 08:43] VITALS: BP 111/57
--- NOTE | 2020-12-30 10:47 | HP ---
DATE OF SERVICE: 12/30/2020 ADMIT DATE: 12/30/2020 ATTENDING PHYSICIAN: Dr. Cleveland. CHIEF COMPLAINT: Profound weakness. HISTORY OF PRESENT ILLNESS: The patient is a 80-year-old gentleman with multiple medical issues. He states he was walking fine yesterday. He got weak. He felt no obvious long bone fracture. Workup in the ED showed no new strokes or bleeds. He is on Eliquis. He has an extensive history of heart disease as well as kidney disease. He also is diabetic. His creatinine is 3.1 mg percent, which is about baseline. He is admitted then with further neuropathy and weakness. He is able to lift his legs barely against gravity. He has 3+/5 strength. A formal neurology consult was obtained. The workup so far is unremarkable for any stroke. PAST MEDICAL HISTORY: Significant for a brief admission in October of this past year 2 months ago with congestive heart failure. He responded well and was sent home. At that time, I offered Cardiology consultation with our online marketer here, he declined. He sees a online marketer at . He has chronic anticoagulation, recent placement of a pacemaker defibrillator. He has heart disease and chronic kidney disease. ALLERGIES: HE HAS ALLERGIES TO SULFA DRUGS. CURRENT MEDICATIONS: Include Eliquis 5 mg b.i.d., aspirin, Lipitor, carvedilol, Lexapro, Neurontin, losartan, metformin, potassium, Januvia and torsemide. SOCIAL HISTORY: He is a nonsmoker, nondrinker. FAMILY HISTORY: Noncontributory. REVIEW OF SYSTEMS: Significant for the falls and the weakness. He is very lethargic. He is not on any narcotics. He has a hard time keeping awake. All other systems reviewed and turned to be negative. PHYSICAL EXAMINATION: GENERAL: When I saw him, this is a chronically ill-appearing gentleman. VITAL SIGNS: Initial vital signs in the ED showed a blood pressure of 111/57, pulse is 76 and regular. He is afebrile. Oxygen sats were 95% on room air. HEENT: Head is without trauma. Pupils are reactive. Sclerae nonicteric. Oropharynx is clear. NECK: Supple, no bruits identified. LUNGS: Shallow respirations. CARDIOVASCULAR: Showed regular heart tones. No gallops. ABDOMEN: Soft. EXTREMITIES: Show profound weakness. He has 3+/5 strength in both the lower extremities. I do not have a baseline. He states he was able to walk and bear weight just 24 hours ago. SKIN: Warm and dry. PERTINENT LABORATORY STUDIES: Hemoglobin 9.4 g/dL, white count 3900. Electrolytes: Sodium 135, potassium 3.0 mEq, creatinine 3.1 mg percent, nonfasting blood sugar 190. ASSESSMENT: 1. A 80-year-old gentleman with profound weakness, inability to walk, resulting in falls. 2. Congestive heart failure, acute on chronic systolic. 3. Recent pacemaker defibrillator placement. 4. Type 2 diabetes. 5. Chronic kidney disease stage IV. 6. Hypokalemia due to diuretics. PLAN: 1. Admit to the inpatient unit. 2. Formal neurology consultation. 3. Continue some home meds, diuretics have been held. 4. Serial chemistries. 5. I shall contact the to ascertain his code status. Prognosis is guarded this time. BINA/NOAH DR: Deisy TID: [id number]
[2020-12-30 11:02] VITALS: BP 109/68
--- NOTE | 2020-12-30 12:32 | NUR ---
CONSULT FOR DR. BERGER HAS BEEN CALLED.
[2020-12-30] MEDS ORDERED: INSU100I13 SQ (14:02)
[2020-12-30] MEDS ORDERED: SITA50TA PO (14:02)
[2020-12-30] MEDS ORDERED: PRED20TA PO (14:02)
[2020-12-30] MEDS ORDERED: KETO200T11 PO (14:02)
--- NOTE | 2020-12-30 14:04 | NUR ---
Nursing note: Pt arrived at 0815, on gurney from ED. Pt alert and oriented x 3, very lethargic, eyes closed entire conversation with RN. Pt unable to answer all admission questions. Unable to perform admission orientation d/t pt's lethargy. Nursing interview with patient's reveals he has extensive cardiac history. notified, with suggestion of Troponin test and cardiology consultation. No no order received. Will continue to monitor pt's condition.
[2020-12-30] MEDS ORDERED: INSU100C4 SQ (14:10)
[2020-12-30] MEDS ORDERED: DEXTROSE 50% 25 GM / 50ML DISP.SYRIN. IV PRN ×2 (14:30)
--- NOTE | 2020-12-30 14:42 | NUR ---
SPOKE WITH THE PTS IN DEPTH IN REGARDS TO ALL MEDICATIONS FILLED RECENTLY AT [facility], PRN MEDICATIONS AND ALL CHANGES THAT WERE MADE EVEN SINCE LAST SCRIPTS WERE FILLED THIS MONTH. IS VERY KNOWLEDGEABLE IN ALL MED HISTORY WELL ALL MEDICATIONS CHANGES AND REASONS.
[2020-12-30] MEDS ORDERED: DOCUSATE SODIUM 100 MG CAPSULE PO PRN (14:45)
[2020-12-30 15:23] VITALS: BP 112/74
--- NOTE | 2020-12-30 16:00 | NUR ---
Nursing note: Pt awake, alert and oriented x 4, cooperative, and pleasant. Pt oriented to the unit routines, room amenities, safety precaution; care plan explained. Will continue to monitor pt's condition.
[2020-12-30] MEDS ORDERED: INSULIN ASPART 14 UNIT SQ SCH (16:30)
[2020-12-30] MEDS: INSULIN LISPRO 300 UNITS/3 ML VIAL. SQ SCH (17:00)
[2020-12-30] MEDS: CITALOPRAM 20 MG TABLET. PO SCH (18:01)
[2020-12-30] MEDS: predniSONE 20 MG TABLET PO SCH (18:01)
[2020-12-30] MEDS: CARVEDILOL 12.5 MG TABLET PO SCH (18:01)
[2020-12-30 19:37] VITALS: BP 128/77
[2020-12-30] MEDS: GABAPENTIN 300 MG CAPSULE. PO SCH (20:24)
[2020-12-30] MEDS: INSULIN GLARGINE SYRINGE. SQ SCH (20:26)
[2020-12-30] MEDS: IPRATROPIUM BROMIDE 0.06% NASAL SPRAY 15ML BOTTLE NS SCH (20:28)
--- NOTE | 2020-12-30 21:41 | CONS ---
DATE OF CONSULTATION: 12/30/2020 NEUROLOGY CONSULTATION REFERRING PHYSICIAN: Dr. Cleveland. REASON FOR CONSULTATION: Rule out TIA/stroke. HISTORY OF PRESENT ILLNESS: This is a 80-year-old right-handed male has had extensive heart disease and cardiac arrhythmia, required pacemaker and defibrillator placement, was admitted through Emergency Room on account of severe weakness of the lower extremities, started yesterday at 3:00 resulted in a fall without any head injuries or back injuries. The patient denies any lower back pain, slurred speech, dysarthria, dysphasia. The patient stated he has been walking fine without any weakness days before that. He also complains of numbness and paresthesia of the upper and lower extremities along with weakness of both hands. He denies neck pain or recent neck injuries. Initial nonenhanced head CT scan revealed old left ashby radiata lacunar infarct with generalized cerebral atrophy and no acute intracranial process. CT angio of the head and neck revealed no significant abnormalities. PAST MEDICAL HISTORY: Significant for diabetes mellitus, coronary artery disease, required 14 stent placement, status post pacemaker and defibrillator implants, hyperlipidemia, sleep apnea, prostate hypertrophy, depressions, myocardial infarction, history of stroke long time ago. Congestive heart failure and chronic kidney disease. FAMILY HISTORY: Strong family history of heart disease. SOCIAL HISTORY: The patient lives with his at home. He denies smoking, alcohol drinking or illicit drug use. CURRENT HOME MEDICATIONS: Tylenol, gabapentin 600 mg t.i.d., carvedilol 25 mg b.i.d., aspirin 325 mg, Eliquis 5 mg b.i.d., Lexapro 10 mg p.o. daily. Insulin NovoLog and insulin Lantus and Januvia 0.5 mg tablet daily. ALLERGIES: SULFONAMIDE ANTIBIOTICS. REVIEW OF SYSTEMS: A 10-point review of system was performed as mentioned above in history of present illness, otherwise unremarkable. PHYSICAL EXAMINATION: GENERAL: Well-developed, well-nourished male in no acute distress. He weighs 74.5 kg, height 68 inches. VITAL SIGNS: Blood pressure 112/74, respiratory rate 20, pulse is 69 and regular, oxygen saturation is 93% on room air and temperature is 98.1. HEENT: Normocephalic, atraumatic, otherwise unremarkable. NECK: Supple, negative for carotid bruit, lymphadenopathy or thyromegaly. LUNGS: Clear to A and P. CARDIAC: Regular rate and rhythm. Normal S1, S2. ABDOMEN: Soft. Bowel sounds positive. EXTREMITIES: Negative for cyanosis, clubbing or pedal edema. NEUROLOGIC: Mental status: The patient is alert and oriented x 2. The speech is fluent. There is no language dysfunction. Memory, judgment and abstracting thinking are fair. The patient denies hallucination or delusion. Cranial nerves: Visual piña are full. The pupils are reactive to light and accommodation. The extraocular movements are intact. There is no nystagmus. There is no facial motor or sensory deficit. Hearing is intact bilaterally. The palate is elevated symmetrically. Sternocleidomastoid muscles are powerful bilaterally. The patient shrugs his shoulders symmetrically, protrudes his tongue in the midline without fasciculation or atrophy. Motor examination revealed focal muscle atrophy affecting both hands along with weakness of all abductors muscles. The strength is 4/5 in the upper extremities and 3/5 in the lower extremities. Sensory examination revealed a significantly diminished pinprick and light touch senses in stocking distributions. Deep tendon reflexes were asymmetric and hypoactive with absent Achilles responses. Gait and coordination not tested. LABORATORY DATA: CBC revealed white blood cells of 3.9 thousand, hemoglobin 9.4, hematocrit 29.5, platelet count 132,000. Chemistry revealed a sodium of 135, potassium 3, chloride 99, CO2 is 24, BUN is 69, creatinine is 3.1, glucose is 190. Troponin level is 124. Urinalysis is negative for urinary tract infections. COVID-2 PCR is pending, but the rapid test is negative. IMPRESSION: 1. Marked weakness of the lower extremities, probably due to underlying severe peripheral neuropathy affecting the lower extremities and may have contributed to the current weakness. 2. History of old stroke without significant residual. 3. Multiple medical problems includes hypertension, diabetes mellitus, extensive coronary artery disease, depressions and anxiety. 4. Hypokalemia. 5. Chronic kidney disease. RECOMMENDATIONS: 1. Continue with current home medications. 2. Physical therapy. 3. Follow up with Dr. Valdez on outpatient basis. We will arrange for EMG/NCS of the upper and lower extremities to rule out peripheral neuropathy versus radiculopathy. MICHELLE/RYDER DR: Amadeo TID: [id number]
[2020-12-31] VITALS: BP 136/74
[2020-12-31 07:15] LABS: CALCIUM 10.1 mg/dL (8.5-10.1); GFR 20.3; POTASSIUM 3.7 mmol/L (3.5-5.1)
[2020-12-31] MEDS: CITALOPRAM 20 MG TABLET. PO SCH (08:22)
[2020-12-31] MEDS: predniSONE 20 MG TABLET PO SCH (08:22)
[2020-12-31] MEDS: LINAGLIPTIN 5 MG TABLET PO SCH (08:22)
[2020-12-31] MEDS: GABAPENTIN 300 MG CAPSULE. PO SCH ×3 (08:23→20:43)
[2020-12-31] MEDS: CARVEDILOL 12.5 MG TABLET PO SCH ×2 (08:25→17:49)
[2020-12-31] MEDS: INSULIN LISPRO 300 UNITS/3 ML VIAL. SQ SCH ×3 (08:27→17:50)
[2020-12-31] MEDS: IPRATROPIUM BROMIDE 0.06% NASAL SPRAY 15ML BOTTLE NS SCH ×4 (08:28→20:44)
[2020-12-31] MEDS: ATORVASTATIN CALCIUM 20 MG TABLET PO SCH (08:29)
--- NOTE | 2020-12-31 10:24 | PN ---
DATE: 12/31/2020 ATTENDING PHYSICIAN: Dr. Cleveland. SUBJECTIVE: He is much more awake today. He is alert. OBJECTIVE FINDINGS: VITAL SIGNS: Blood pressure this morning is 136/74, pulse is 90 and regular. He is afebrile. Oxygen saturation 93% on room air. HEENT: Head is without trauma. Pupils are reactive. Sclerae nonicteric. Oropharynx clear. LUNGS: Clear. CARDIOVASCULAR: Regular heart tones. No gallop. ABDOMEN: Soft. EXTREMITIES: He now has 4+/5 strength. He is able to lift both legs up against gravity. He is still weak. Physical therapy has not assessed him yet. Neurology consultation is greatly appreciated. Peripheral neuropathy is diagnosed. ASSESSMENT: 1. A 80-year-old gentleman with peripheral neuropathy, resulting weakness. 2. History of old stroke without new strokes. 3. Multiple other medical issues. 4. Congestive heart failure, compensated. 5. Chronic kidney disease stage V. PLAN: 1. Recs per Neurology. 2. Some home meds continued. 3. Physical therapy consultation. 4. I shall discuss with his whether he should go to rehab or come home. KADEN/ASIF DR: BINA/jasson TID: [id number]
[2020-12-31 12:08] VITALS: BP 130/54
[2020-12-31 15:14] VITALS: BP 164/78
[2020-12-31 19:10] VITALS: BP 151/75
--- NOTE | 2020-12-31 20:04 | PN ---
SUBJECTIVE: The patient denies any new medical or neurological complaints. He said he was able today to get up and using a walker and walking by himself. He continues to have mild weakness of the lower extremities along with numbness and paresthesia. He denies any other new medical or neurological complaints. OBJECTIVE: GENERAL: Well-developed, well-nourished male in no acute distress. VITAL SIGNS: Blood pressure 130/54, respiratory rate 18, pulse is 72 and regular, temperature 98.1, oxygen saturation 97% on room air. HEENT: Normocephalic, atraumatic, otherwise unremarkable. NECK: Supple, negative for carotid bruit, lymphadenopathy or thyromegaly. LUNGS: Clear to A and P. CARDIOVASCULAR: Regular rate and rhythm, normal S1, S2. ABDOMEN: Soft. Bowel sounds positive. EXTREMITIES: Negative for cyanosis, clubbing or pedal edema. NEUROLOGIC: Mental Status: The patient is alert and oriented x2. The speech is fluent. There is no language dysfunction. Otherwise unremarkable. Cranial nerves are intact. Motor examination revealed markedly focal muscle wasting including the hand small muscles with weakness of all abductors bilaterally. Sensory examination revealed a diminished pinprick and light touch senses in both distal lower extremities in stocking distributions and in glove distributions. Deep tendon reflexes were symmetric and hypoactive with absent Achilles responses. Gait not tested at this time. IMPRESSION: 1. Marked weakness of the lower extremities and difficulty to walk likely due to underlying peripheral neuropathy. 2. Markedly weakness of all hand small muscles including abductors muscles, raising the question of entrapment neuropathy of the bilateral ulnar nerve at the elbows versus a peripheral neuropathy in the upper extremities. 3. Multiple medical problems include hypertension, diabetes mellitus, extensive coronary artery disease, depression and anxiety, chronic kidney disease. RECOMMENDATIONS: 1. Continue with current management initiated by Dr. Cleveland. 2. Continue physical therapy as tolerated. 3. We will arrange for EMG/NCS of the upper and lower extremities to rule out peripheral neuropathy, entrapment neuropathy of the bilateral ulnar nerves at the elbow versus cervical or lumbosacral radiculopathy. MICHELLE/SOCORRO DR: Amadeo TID: [id number]
[2020-12-31] MEDS: INSULIN GLARGINE SYRINGE. SQ SCH (20:43)
[2020-12-31 23:35] VITALS: BP 132/70
[2021-01-01 08:00] VITALS: BP 158/69
[2021-01-01] MEDS: GABAPENTIN 300 MG CAPSULE. PO SCH ×3 (09:21→20:42)
[2021-01-01] MEDS: CARVEDILOL 12.5 MG TABLET PO SCH ×2 (09:21→17:24)
[2021-01-01] MEDS: IPRATROPIUM BROMIDE 0.06% NASAL SPRAY 15ML BOTTLE NS SCH ×4 (09:21→21:00)
[2021-01-01] MEDS: CITALOPRAM 20 MG TABLET. PO SCH (09:22)
[2021-01-01] MEDS: LINAGLIPTIN 5 MG TABLET PO SCH (09:22)
[2021-01-01] MEDS: ATORVASTATIN CALCIUM 20 MG TABLET PO SCH (09:22)
[2021-01-01] MEDS: INSULIN LISPRO 300 UNITS/3 ML VIAL. SQ SCH ×3 (09:28→17:24)
[2021-01-01] MEDS: predniSONE 20 MG TABLET PO SCH (09:28)
--- NOTE | 2021-01-01 10:00 | PN ---
DATE: 01/01/2021 ATTENDING PHYSICIAN: Dr. Cleveland. SUBJECTIVE: He is alert. He is eating breakfast independently. Supposedly, he transferred from his bed to the chair without any assistance. His strength in the legs are getting better. He still remains very weak and is prone to falls. OBJECTIVE FINDINGS: VITAL SIGNS: Blood pressure this morning is 132/70 mmHg. He is afebrile. Oxygen saturation of 94% on room air and his pulse is 70 and quite regular. HEENT: Head is without trauma. Pupils are reactive. Sclerae nonicteric. Oropharynx clear. NECK: Supple, no bruits. LUNGS: Clear. CARDIOVASCULAR: Showed regular heart tones. No gallop. ABDOMEN: Soft. No guarding. EXTREMITIES: Show no cyanosis or edema. NEUROLOGIC FINDINGS: Still profound weakness, but improved from 2 days ago. There is also evidence of weakness in his upper extremities from ulnar nerve entrapment per Neurology. ASSESSMENT: A 80-year-old gentleman with; 1. Severe peripheral neuropathy, resulting weakness and inability to walk. 2. Underlying diabetes, which is a contributing factor. 3. Acute on chronic congestive heart failure, compensated. 4. Chronic kidney disease stage V, baseline creatinine is somewhere around 3.0 mg/dL. 5. Generalized debilitation. 6. History of pacemaker defibrillator. 7. Type 2 diabetes. PLAN: 1. Home meds continue and as ordered. 2. Recs per Neurology. 3. The patient is alert. He has agreed to go to a rehab facility. We are looking at disposition. JADON DR: Deisy TID: [id number]
--- NOTE | 2021-01-01 10:02 | PN ---
SUBJECTIVE: The patient denies any new medical or neurological complaints. He continues to have a mild weakness of the lower extremities. OBJECTIVE: GENERAL: A well-developed, well-nourished male in no acute distress. VITAL SIGNS: Blood pressure 158/69, respiratory rate 18, pulse is 90, regular, oxygen saturation is 96% on 2 liters per nasal cannula and temperature is 98.8. HEENT: Normocephalic, atraumatic, otherwise unremarkable. NECK: Supple, negative for carotid bruit, lymphadenopathy or thyromegaly. LUNGS: Clear to A and P. CARDIOVASCULAR: Regular rhythm. Normal S1, S2. ABDOMEN: Soft. Bowel sounds positive. EXTREMITIES: Negative for cyanosis, clubbing or pedal edema. NEUROLOGIC EXAMINATION: Mental status: The patient is alert and oriented x 3. Speech is fluent. There is no language dysfunction. Cranial nerves are intact. Motor examination revealed focal muscle wasting confined in the hand with weakness of the abductors muscles, the strength is 4/5 in upper extremities and -4/5 in the lower extremities. Sensory examination revealed normal pinprick and light touch senses throughout. Deep tendon reflexes were symmetric and hypoactive with absent Achilles responses. Gait: The patient uses a walker for ambulation. IMPRESSION: 1. Weakness of the lower extremities -- improved, likely due to underlying peripheral neuropathy. 2. Marked weakness of the hand small muscles including abductors muscles, raising the questions of entrapment neuropathy of the bilateral ulnar nerve at the elbows versus peripheral neuropathy in the upper extremities. 3. Multiple medical problems include hypertension, diabetes mellitus, extensive coronary artery disease, depressions, anxiety and kidney disease. RECOMMENDATIONS: 1. Continue with current management initiated by Dr. Cleveland. 2. Continue with rehabilitation. 3. We will arrange a followup with Dr. Valdez in [facility]rology [facility] for EMG/NCS of the upper and lower extremities. Otherwise, the patient is neurologically stable. DONNA DR: Amadeo TID: [id number]
[2021-01-01 12:00] VITALS: BP 145/69
[2021-01-01 15:30] VITALS: BP 155/73
--- NOTE | 2021-01-01 17:34 | NUR ---
Nursing note: Pt awake, alert and oriented x 4, cooperative, and pleasant. Pt able to self feed, brush teeth, transfer himself between bed and chair, and ambulated with walker to bathroom by himself. Pt needs help with putting socks on feet. Patient is ready to be transferred to [facility]. Will monitor pt's recovery until discharge.
[2021-01-01 18:58] VITALS: BP 150/67
[2021-01-01] MEDS: INSULIN GLARGINE SYRINGE. SQ SCH (20:42)
[2021-01-01 23:00] VITALS: BP 174/71
[2021-01-02 05:00] VITALS: BP 160/68
[2021-01-02] MEDS: INSULIN LISPRO 300 UNITS/3 ML VIAL. SQ SCH ×3 (08:00→17:00)
[2021-01-02] MEDS: CARVEDILOL 12.5 MG TABLET PO SCH ×2 (08:38→16:46)
[2021-01-02] MEDS: GABAPENTIN 300 MG CAPSULE. PO SCH ×3 (08:38→20:41)
[2021-01-02] MEDS: predniSONE 20 MG TABLET PO SCH (08:38)
[2021-01-02] MEDS: CITALOPRAM 20 MG TABLET. PO SCH (08:38)
[2021-01-02] MEDS: IPRATROPIUM BROMIDE 0.06% NASAL SPRAY 15ML BOTTLE NS SCH ×5 (08:38→20:42)
[2021-01-02] MEDS: LINAGLIPTIN 5 MG TABLET PO SCH (08:38)
[2021-01-02] MEDS: ATORVASTATIN CALCIUM 20 MG TABLET PO SCH (08:38)
--- NOTE | 2021-01-02 09:14 | PN ---
SUBJECTIVE: The patient denies any new medical or neurological complaints. His weakness of the lower extremities has improved. OBJECTIVE: GENERAL: Well-developed, well-nourished male in no acute distress. VITAL SIGNS: Blood pressure 160/68, respiratory rate 16, pulse is 68, temperature 98.1, oxygen saturation 97% on room air. HEENT: Normocephalic, atraumatic. Otherwise unremarkable. NECK: Supple, negative for carotid bruit, lymphadenopathy, or thyromegaly. LUNGS: Clear to A and P. CARDIOVASCULAR: Regular rate and rhythm. Normal S1, S2. There is no S3, S4, or murmur. ABDOMEN: Soft. Bowel sounds positive. EXTREMITIES: Negative for cyanosis, clubbing, or pedal edema. NEUROLOGIC: Normal mental status and intact cranial nerves. There is a focal muscle atrophy in both hands with marked weakness of the bilateral hand abductors. Sensory examination revealed a diminished pinprick and light touch senses in patchy distributions in upper and lower extremities. Deep tendon reflexes were symmetric and hypoactive with absent Achilles responses. Gait: The patient uses a walker for ambulation. IMPRESSION: 1. Marked weakness of the lower extremities improved over the last few days, probably secondary to severe peripheral neuropathy. 2. Marked atrophy of bilateral hand small muscles suggestive of entrapment neuropathy in the upper extremities, probably the ulnar nerve entrapment at the elbow versus peripheral neuropathy 3. Multiple medical problems include diabetes mellitus, peripheral neuropathy in the lower extremities, coronary artery disease, anxiety, and depression. RECOMMENDATIONS: 1. Continue with current management initiated by Dr. Cleveland. 2. Follow up with Dr. Valdez after 2 weeks from discharge and arrange for EMG/NCS of the upper and lower extremities. NITHYA DR: Amadeo TID: [id number]
--- NOTE | 2021-01-02 10:06 | PN ---
DATE: 01/02/2021 ATTENDING PHYSICIAN: Dr. Cleveland. SUBJECTIVE: He is alert. He is sitting up in chair, eating breakfast independently. No new complaints, weakness have improved since he has been in a controlled environment getting his meds. OBJECTIVE FINDINGS: VITAL SIGNS: Blood pressure this morning is 160/68, pulse is 70 and regular. He is afebrile. Oxygen saturation 97% on room air. HEENT: Head is without trauma. Pupils are reactive. Sclerae nonicteric. The oropharynx is clear. NECK: Supple, no bruits. LUNGS: Good breath sounds. CARDIOVASCULAR: Showed regular heart tones. ABDOMEN: Soft. EXTREMITIES: Show trace edema. NEUROLOGIC FINDINGS: Focally intact. Strength is 4-1/2 out of 5 in lower extremities. LABORATORY DATA: Blood sugars are in the mid 100s. ASSESSMENT: 1. A 80-year-old gentleman with profound weakness due to severe peripheral neuropathy, inability to walk, he is improved. 2. Underlying diabetes, which is a contributing factor. 3. Chronic kidney disease stage V. 4. Acute on chronic congestive heart failure, compensated. 5. Generalized debilitation. 6. Pacemaker defibrillator. 7. Type 2 diabetes. PLAN: 1. Home meds have been simplified. I have stopped his prednisone. He does not need at this time. 2. Recs per Neurology service. 3. He has agreed to go to rehabilitation. We are awaiting his [facility] to authorize discharge to rehabilitation. YEN DR: Deisy TID: [id number]
[2021-01-02 11:48] VITALS: BP 138/72
[2021-01-02 14:14] VITALS: BP 159/63
[2021-01-02 19:00] VITALS: BP 163/63
[2021-01-02] MEDS ORDERED: ACETAMINOPHEN 325 MG TABLET PO PRN (20:00)
[2021-01-02] MEDS: INSULIN GLARGINE SYRINGE. SQ SCH (20:42)
[2021-01-02 23:29] VITALS: BP 149/67
[2021-01-03 06:13] VITALS: BP 139/62
[2021-01-03] MEDS: IPRATROPIUM BROMIDE 0.06% NASAL SPRAY 15ML BOTTLE NS SCH (09:00)
[2021-01-03] MEDS: GABAPENTIN 300 MG CAPSULE. PO SCH (09:37)
[2021-01-03 09:38] VITALS: BP 139/62
[2021-01-03] MEDS: CITALOPRAM 20 MG TABLET. PO SCH (09:38)
[2021-01-03] MEDS: CARVEDILOL 12.5 MG TABLET PO SCH (09:38)
[2021-01-03] MEDS: ATORVASTATIN CALCIUM 20 MG TABLET PO SCH (09:38)
[2021-01-03] MEDS: LINAGLIPTIN 5 MG TABLET PO SCH (09:38)
[2021-01-03] MEDS: INSULIN LISPRO 300 UNITS/3 ML VIAL. SQ SCH (09:41)
--- NOTE | 2021-01-03 12:21 | DISCH ---
DISCHARGE ORDERS DISCHARGE DATE: Jan 03, 2021 FINAL DIAGNOSIS Generalized weakness daibetic neuropathy acute on chronic cjf CONDITION AT DISCHARGE: Stable Code Status: DNR/DNI SNF STAY <30 DAYS: Yes POST DISCHARGE ORDERS: ACTIVITY ORDERS: No restrictions, Activity as tolerated DIET AFTER DISCHARGE: ADA CHECKS AFTER DISCHARGE: CHECKS AFTER DISCHARGE: Check blood press - daily, Check blood sugar, ac/hs, Weigh Yourself Daily FOLLOW-UP: FFOLLOW-UP WITH: PRIMARY CARE PHYSICIAN WITHIN 2 WEEKS CALL FOR AN APPOINTMENT TREATMENT/EQUIPMENT ORDERS: ADAPTIVE EQUIPMENT NEEDED: None DISCHARGE MEDICATIONS: Home Meds Reported Medications Insulin Aspart (NOVOLOG) 100 Unit/1 Ml Cartridge, 14 UNIT SQ TIDAC for diabetes, SYR 12/30/20 Insulin Glargine,Hum.rec.anlog (LANTUS SOLOSTAR) 100 Unit/1 Ml Insuln.pen, 15 UNIT SQ QHS for diabetes, #15 ML 5 Refills 12/30/20 Sitagliptin Phosphate (JANUVIA) 50 Mg Tablet, 0.5 TAB PO DAILY for diabetes, #30 TAB 5 Refills 12/30/20 Aspirin (ASPIRIN) 325 Mg Tablet, 81 MG PO DAILY08 for blood, TAB 10/23/19 Escitalopram Oxalate (Escitalopram Oxalate) 10 Mg Tablet, 20 MG PO DAILY for depression/lesley 10/23/19 Apixaban (ELIQUIS) 5 Mg Tablet, 2.5 MG PO BID for blood thinner 10/23/19 Gabapentin (GABAPENTIN ) 300 Mg Capsule, 600 MG PO TID for neuropathy 10/23/19 Atorvastatin Calcium (ATORVASTATIN CALCIUM) 20 Mg Tablet, 1 TAB PO DAILY for cholesterol 10/23/19 Carvedilol (CARVEDILOL) 25 Mg Tablet, 12.5 TAB PO BID for htn 10/23/19 Discontinued Reported Medications Prednisone (PREDNISONE) 20 Mg Tablet, 1 TAB PO DAILY for steroid, #5 TAB 12/30/20 Ketoconazole (KETOCONAZOLE) 200 Mg Tablet, 1 TAB PO DAILY for antifungal, #10 TAB 12/30/20 Sitagliptin Phosphate (JANUVIA) 100 Mg Tablet, 1 TAB PO DAILY for diabetes 10/23/19 Metformin Hcl (METFORMIN HCL) 1,000 Mg Tablet, 1 TAB PO BID for diabetes 10/23/19 Potassium Chloride (KLOR-CON M20) 20 Meq Tab.er.prt, 20 MEQ PO DAILY for potassium replacement 10/23/19 Potassium Chloride (KLOR-CON M20) 20 Meq Tab.er.prt, 20 MEQ PO DAILY for potassium replacement 10/23/19 Losartan Potassium (LOSARTAN POTASSIUM) 100 Mg Tablet, 1 TAB PO DAILY for htn 10/23/19 Torsemide (TORSEMIDE) 20 Mg Tablet, 1.5 TAB PO DAILY for chf 10/23/19 PIPPA KARIMI MD Jan 03, 2021 12:21
== END 2021-01-03 10:30 | DRG 73 ==
LOC: ER 05:03 → 1 SOUTH 07:29
PROVIDERS: ADMIT Hospitalist; ATTEND Hospitalist
DX: E11.42 Type 2 diabetes mellitus with diabetic polyneuropathy (principal); I50.23 Acute on chronic systolic (congestive) heart failure; E43 Unspecified severe protein-calorie malnutrition; I13.2 Hypertensive heart and chronic kidney disease with heart failure and with stage 5 chronic kidney disease, or end stage renal disease; N18.5 Chronic kidney disease, stage 5; E11.22 Type 2 diabetes mellitus with diabetic chronic kidney disease; E87.6 Hypokalemia; T50.2X5A Adverse effect of carbonic-anhydrase inhibitors, benzothiadiazides and other diuretics, initial encounter; I25.10 Atherosclerotic heart disease of native coronary artery without angina pectoris; G47.30 Sleep apnea, unspecified; E78.5 Hyperlipidemia, unspecified; E78.00 Pure hypercholesterolemia, unspecified; F32.A Depression, unspecified; F41.9 Anxiety disorder, unspecified; I25.2 Old myocardial infarction; Z20.822 Contact with and (suspected) exposure to COVID-19; N40.0 Benign prostatic hyperplasia without lower urinary tract symptoms; Y92.89 Other specified places as the place of occurrence of the external cause; Z95.5 Presence of coronary angioplasty implant and graft; Z95.0 Presence of cardiac pacemaker; Z91.81 History of falling; Z86.73 Personal history of transient ischemic attack (TIA), and cerebral infarction without residual deficits; Z85.51 Personal history of malignant neoplasm of bladder; Z82.49 Family history of ischemic heart disease and other diseases of the circulatory system; Z79.899 Other long term (current) drug therapy; Z79.4 Long term (current) use of insulin; Z79.01 Long term (current) use of anticoagulants; Z68.25 Body mass index [BMI] 25.0-25.9, adult
CPT/HCPCS: 36415; 70450; 70496; 70498; 71250; 74176; 80048; 80053; 81001; 82947; 83735; 84484; 85025; 85610; 85730; 87426; 93005; J1815; J3010; J7512; U0003; 97110; 97530; 99285-25